=== PATIENT | male | born 1940 | race Caucasian/White ===

== ENCOUNTER → 2018-12-18 07:10 | Outpatient (CLI) | payer MEDICARE, SELFPAY ==
--- NOTE | 2018-12-18 07:13 | CT_ITS ---
STUDY: CT MAXILLOFACIAL SINUSES REASON FOR EXAM: Male, 78 years old. Sinusitis. Nasal congestion. RADIATION DOSAGE (If Supplied By Facility): CTDIvol = ( 33.06 ) mGy, DLP = ( 804.92 ) mGycm TECHNIQUE: The patient was scanned in a multi detector CT scanner. High resolution axial imaging was performed without the administration of intravenous contrast material. Sagittal and coronal images were reconstructed. Individualized dose optimization techniques were used for this CT. COMPARISON: None. FINDINGS: FRONTAL SINUSES: Opacification of the frontal sinuses bilaterally. ETHMOIDAL SINUSES: Opacification of the ethmoid sinuses with thinning of the bony septa. MAXILLARY SINUSES: Opacification of the maxillary sinuses with obstruction of the ostiomeatal complexes bilaterally. SPHENOIDAL SINUSES: Opacification of the sphenoid sinus. Normal bilateral middle turbinates. There is hypertrophy of the left inferior nasal turbinate. Normal midline nasal septum. Soft tissue proliferation within the nasal fossa worse on the left side. Polyposis should be ruled out. Thinning of the medial manzanares of both maxillary sinuses. The visualized bilateral orbital contents are normal. CT/Sinus/Facial Bone IMPRESSION: Gipson sinusitis. Soft tissue density in the nasal fossa suggestive of polyposis. Electronically Signed: Sunny Benoit, at 10:30 EDT , Service support ,
== END ==
PROVIDERS: Family Provider Family Medicine; PCP Family Medicine; Referring Provider Otolaryngology Otolaryngology/Facial Plastic Surgery; Visit Provider Otolaryngology Otolaryngology/Facial Plastic Surgery
DX: J32.9 Chronic sinusitis, unspecified (principal)
CPT/HCPCS: 70486

== ENCOUNTER 2019-03-02 08:53 | Day surgery (SDC) | payer MEDICARE, SELFPAY ==
--- NOTE | 2019-02-24 14:32 | EKG12_ITS ---
Test Reason : PRE OP Blood Pressure : / mmHG Vent. Rate : 077 BPM Atrial Rate : 077 BPM P-R Int : 164 ms QRS Dur : 078 ms QT Int : 362 ms P-R-T Axes : 064 -20 048 degrees QTc Int : 409 ms Normal sinus rhythm Possible Inferior infarct (cited on or before 20-OCT-1999) Abnormal ECG Confirmed by MAC SHARIF, GARETH ([id number]), video news editor BRYSON ALBARADO ([id number]) on 02/25/2019 10:44:02 AM Referred By: Keron James Confirmed By:GARETH WATTS MD
[2019-02-24 15:54] LABS: Hematocrit 47.3 % (40-54); Mean Corp Hgb Conc 33.8 g/dL (32-36); Mean Corpuscular Hgb 31.5 pg (27.0-32.0); Mean Corpuscular Volume 93.1 fL (80-94); Mean Platelet Vol. 10.2 fl (6.2-12.0); Platelet Count 197 K/mm3 (150-450); RBC Distribution Width CV 13.2 % (11.6-14.6); RBC Distribution Width SD 45.8 fl (35.1-43.9); Red Blood Count 5.08 M/mm3 (4.6-6.2); White Blood Count 6.3 K/mm3 (4.4-11.0)
[2019-02-24 16:09] LABS: Anion Gap 6 (5-15); BUN 18 mg/dL (7-18); BUN/Creat Ratio 22.8 RATIO (10-20); Calcium,Total 9.4 mg/dL (8.5-10.1); Chloride 102 mmol/L (98-107); Creatinine, Serum 0.79 mg/dL (0.70-1.30); EST Glomerular Filtration Rate 101 mL/min (>60); Est Glom Filt Rate - Afr Amer 122 mL/min (>60); Glucose 123 mg/dL (74-106); Potassium 3.7 mmol/L (3.5-5.1); Sodium Level 139 mmol/L (136-145)
[2019-03-02 09:12] VITALS: BP 168/97; PULSE 79; RESP 16; TEMP 36.6; O2SAT 97; BMI 29.1
[2019-03-02] MEDS: Lactated Ringers 1,000 ML 100 ML IV (09:19)
[2019-03-02] MEDS: Oxymetazoline 0.05% 1 SPRAY SPRAY.BTL 3 SPRAY NASAL (09:20)
--- NOTE | 2019-03-02 10:02 | DCINST_ITS ---
You will use the following diet at home:: Regular Discharge Activity: Return to Normal Activity Additional Activity Instructions:: No noseblowing. Start irrigation tomorrow morning (4x/day). Start antibiotics tonight. Allergies/Adverse Reactions: Allergies Sulfa (Sulfonamide Antibiotics) Allergy (Verified 02/24/19 10:34) Unknown Medications to take at Discharge Hydrochlorothiazide [Hctz] 25 mg PO DAILY 02/24/19 Lovastatin 40 mg PO QHS 02/24/19 Multivit-Min/FA/Lycopen/Lutein [Centrum Silver Men Tablet] 1 ea PO DAILY 02/24/19 Orders to be completed after discharge: 12 Lead EKG [CVS] Time Frame: 02/24/19, Facility: [facility], Location: Cardiovascular Services Basic Metabolic Profile (BMP) Time Frame: 02/24/19, Facility: [facility], Location: Laboratory CBC-Complete Blood Cnt No Diff Time Frame: 02/24/19, Facility: [facility], Location: Laboratory Primary Care Physician: Richar Coleman MD [Primary Care Provider] - Test Results: Test results from this visit will be discussed in further detail at your follow- up appointment, if applicable.
--- NOTE | 2019-03-02 11:00 | ETH_PTH ---
PATIENT: JOCELYNE SPENCER LOC: [facility] U#:[id number] AGE/SX: 79/M ROOM: RE03/02/[address]: Dr. Keron James MD : 1940 BED: DIS: 03/02/2019 SPEC #: [id number] RECD: 03/02/19 13:22 STATUS: EVERARDO JENN #: [id number] BECKY: 03/02/19 11:[address]: Keron James DEPT: SURGICAL PATHOLOGY RECD BY: Ross Thapa ENTERED: 03/02/19 13:52 SP TYPE: ETH TISS OTHR DR: Dr. Richar Coleman MD Tissues: A - Ethmoid sinus, NOS B - Ethmoid sinus, NOS Procedures: Decalcification bone/plaque Surgery Specimen Level III HEADER OPERATION: Endoscopic intranasal ethmoid, maxillary, Antro tissue removal PRE-OP DIAGNOSIS: Nasal congestion, chronic pansinusitis, polyps of nasal cavity TISSUE SUBMITTED: A - Right ethmoid and maxillary sinus contents, B - Left ethmoid and maxillary sinus contents MICROSCOPIC DIAGNOSIS A. Right ethmoid and maxillary sinus contents, excision: Consistent with chronic sinusitis. Fragments of bone with no pathologic change. B. Left ethmoid and maxillary sinus contents, excision: Consistent with chronic sinusitis. Fragments of bone with no pathologic change. AM:reggie 03/05/19 MICROSCOPIC DESCRIPTION Slides are reviewed. GROSS DESCRIPTION A - Received in fixative is one container labeled with the patient's name and designated right ethmoid and maxillary sinus contents. The specimen consists of multiple fragments of pink hemorrhagic soft tissue mixed with mucoid tissue and fragments of bone that in aggregate measure 5 x 3 x 0.3 cm. The entire specimen is submitted in two cassettes after decalcification. B - Received in fixative is one container labeled with the patient's name and designated left ethmoid and maxillary sinus contents. The specimen consists of multiple fragments of pink hemorrhagic soft tissue mixed with mucoid tissue and fragments of bone that in aggregate measure 5 x 3 x 0.3 cm. The entire specimen is submitted in two cassettes after decalcification. / SJ:reggie 03/02/19 TC:3 CPT: 00096 x2, 44328 x2
[2019-03-02] MEDS: Oxymetazoline 0.05% 1 SPRAY SPRAY.BTL 15 SPRAY (11:25)
[2019-03-02 11:39] VITALS: BP 145/92; BP 168/97; PULSE 77; RESP 18; TEMP 36.2; O2SAT 97
[2019-03-02 11:45] VITALS: BP 141/93; BP 168/97; PULSE 77; RESP 18; O2SAT 95
--- NOTE | 2019-03-02 11:50 | OP.PCM_ITS ---
Report of Operation Date of Procedure: 03/02/19 Pre-Operative Diagnosis: chronic sinusitis Post-Operative Diagnosis: same Surgery/Procedure Performed:: Bilateral total ethmoidectomy, Bilateral sphenoidotomy, Bilateral maxillary antrostomy with tissue removal, Use of navig ation Type of Anesthesia:: General Anesthesiologist: Shadi Pena Specimen's removed: sinus contents Estimated Blood Loss (mL): <30 cc Description of Procedure: The patient was taken to the operating room on 03/02/2019. He was placed in the supine position on the operating table. He was given sufficient general endotracheal anesthesia. The head of bed was elevated 30 degrees. The navigation system was placed and verified per protocol and found to be accurate. 0 and 30 degrees rigid nasal endoscopes were used throughout the entire case. The middle turbinate uncinate process and polyps were injected with 1% lidocaine with epinephrine bilaterally. The right middle turbinate was medialized with a Suring elevator. Polyp was removed from the middle meatus using a sinus shaver. A ball-tipped sinus seeker was placed into the patient's maxillary sinus. The uncinate process was taken down using a microdebrider. Tissue was removed from the maxillary sinus using a microdebrider with a 30 degree rigid nasal endoscope for visualization. Next, the ethmoid bulla was opened with a small curette. Anterior and posterior ethmoidectomy were then carried out using curette, sinus shaver and 45 degree Blakesley Jaylene forceps. Ethmoid cells were verified for relation to the skull base and orbit prior to being entered with the navigation system. The front face of the sphenoid was opened with a suction. Marcelino-Cut forceps were then used to widen the opening. I then placed Afrin pledgets into the sinonasal cavity. Next attention was turned to the left side. The middle turbinate was medialized with a Suring elevator. A large polyp was removed from the middle meatus using a sinus shaver. The uncinate process was taken down using a sinus shaver. In doing so, the maxillary antrostomy was created. Tissue was removed from the maxillary sinus using a microdebrider with a 30 degree rigid nasal endoscope for visualization. The ethmoid bulla was opened with a small curette. Anterior posterior ethmoidectomy were then carried out using a sinus shaver curette and Blakesley Jaylene forceps. Ethmoid cells were verified for relation to the skull base and orbit prior to being entered with the navigation system. There was a polyp occluding the natural sphenoid ostia. This was removed with a sinus shaver. The sphenoid was then opened on the left side using a sinus shaver and confirmed with navigation. Hemostasis was then achieved using Afrin pledgets. The pledgets were then removed bilaterally and Arron powder was applied bilaterally for absolute hemostasis. The procedure was then terminated. The patient was then awoken and brought to the recovery room in stable condition blood loss less than 30 cc replacement none. Sponge, needle, instrument count were correct at the end of the procedure.
[2019-03-02 11:57] VITALS: BP 140/90; BP 168/97; PULSE 73; RESP 18; TEMP 36.6; O2SAT 94
[2019-03-02 12:26] VITALS: BP 137/75; BP 168/97; PULSE 66; RESP 16; TEMP 36.3; O2SAT 96
== END 2019-03-02 12:32 | disposition home or self-care (01) ==
LOC: SDC 09:01 → AC 09:02
PROVIDERS: Family Provider Family Medicine; PCP Family Medicine; Referring Provider Otolaryngology; Visit Provider Otolaryngology
PROC: (CPT 31257; principal; 2019-03-02 10:30)
DX: J32.9 Chronic sinusitis, unspecified (principal); I10 Essential (primary) hypertension; E78.00 Pure hypercholesterolemia, unspecified; Z79.899 Other long term (current) drug therapy; Z87.891 Personal history of nicotine dependence
CPT/HCPCS: 00160; 31257; 31267; 36415; 80048; 85027; 88304; 88305; 88311; 93005; J7120; J2405

== ENCOUNTER → 2021-12-18 | Outpatient (CLI) | payer MEDICARE, SELFPAY ==
--- NOTE | 2021-12-18 14:49 | CT_ITS ---
EXAM: CT RIGHT LOWER EXTREMITY WITHOUT INTRAVENOUS CONTRAST CLINICAL INDICATION: PRE-OP TECHNIQUE: Helically acquired images were obtained of the right lower extremity without intravenous contrast. 2-D reformats were performed by the technologist. CTDIvol = ( 18.76 ) mGy, DLP = ( 1343.39 ) mGycm This CT exam was performed using one or more of the following dose reduction techniques: automated exposure control, adjustment of the mA and/or kV according to patient size, and/or use of iterative reconstruction technique. This report was created using [employer] report [employer] technology. COMPARISON: None. FINDINGS: Multiple large intra-articular ascitic bodies within the knee joint space most prominent at the suprapatellar space. Moderate to large joint effusion. Severe tricompartmental osteoarthrosis. Unusually large cystic lesions involving the proximal tibia could be degenerative or subchondral. MRI may provide additional useful for age. Atherosclerotic calcifications of the distal femoral and popliteal artery. 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 Additional ganglion or synovial cyst identified posteriorly between proximal tibia and fibula. Small fat-containing right inguinal hernia. Prominent prostate is nonspecific; correlate with PSA levels. Decompressed bladder. Anasarca. CT/Extremity Lower without Contra IMPRESSION: Moderate to severe tricompartmental osteoarthrosis, large proximal tibia cysts, and large knee joint effusion with multiple intra-articular ossific bodies. Electronically Signed: Wally Baker MD at 3:25 EDT ,
== END | disposition home or self-care (01) ==
LOC: CT 14:48
PROVIDERS: PCP Family Medicine; Referring Provider Specialist; Visit Provider Specialist
DX: M21.061 Valgus deformity, not elsewhere classified, right knee (principal)
CPT/HCPCS: 73700

== ENCOUNTER 2022-01-10 13:55 | Observation (INO) | payer MEDICARE, SELFPAY ==
--- NOTE | 2021-12-19 19:53 | HP.PCM_ITS ---
History and Physical History and Physical [facility] Patient Name: Patric Whitlock : 1940 From:? VELVET HOWELL PA-C? DATE OF SURGERY:? 01/10/2022 SCHEDULED PROCEDURE:? right total knee arthroplasty HISTORY OF PRESENT ILLNESS: Preoperative history and physical exam was performed on December 18, 2021.? This is a 81-year-old male who has been having ongoing pain for several years with regards to his right knee.? Pain is been intermittent.? Pain is increased with going up and down stairs, sitting, and walking.? He has difficulty with any activities of daily living that require physical heavier work.? He does have start up pain.? Pain is located over the lateral joint line.? Pain does occasionally wake him at nighttime.? He feels unsafe walking on uneven ground.? He has had previous corticosteroid injection in August 2021 with minimal relief.? He did have a MRI which was ordered by Dr. Abdirizak Singh for preoperative planning which did show a tibial cyst.? Patient has also tried home exercises with minimal relief.? He has tried [id number] medications including Tylenol and anti-inflammatory.? He has tried bracing with minimal relief.? He has had previous knee arthroscopies and bilateral knees by Dr. Hernandez approximately 20 years ago.? Patient has medical history pertinent for hypertension and enlarged prostate.? He denies any previous history of DVT or pulmonary embolism.? We are obtaining surgical clearance from the patient's primary care physician Dr. Becerril.? After failing conservative measures and discussing treatment options with Dr. Steve Pete, the patient does wish to proceed with a right total knee arthroplasty.? He currently denies any chest pain, shortness of breath, fevers chills or recent infections. REVIEW OF SYSTEMS: Review Of Systems: Constitutional: Denies change in appetite, fever,or weight change. Cardiovasular: Denies chest pain, heart murmur and irregular heartbeat. Respiratory: Denies cough, pneumonia, shortness of breath, tuberculosis and wheezing. Gastrointestinal: Denies constipation, diarrhea, heartburn, nausea, rectal itching, bloody stools and vomiting. Genitourinary: Denies incontinence. Musculoskeletal: Denies leg swelling, pain, trouble walking and weakness. Skin: Denies Raynaud's, history of shingles and tattoo. Neurological: Reports ambulatory dysfunction but denies dizziness, numbness/tingling and tremor. Psychiatric: Denies anxiety, insomnia and stress. Hematologic/Lymphatic: Denies anemia, bleeding/bruising tendency and past transfusion. Reviewed and updated. PAST MEDICAL HISTORY: Advance Care Plan: Resuscitationdg Effective Date: 06/14/2021 Past Medical History: Medical Problems: Arthritis, High Blood Pressure, High Cholesterol, enlarged prostate Accidents: Fracture - COLLAR BONE IN 8 RIBS IN Surgical Hx: Arthroscopy - BILAT KNEE- [facility]? Dr. Hernandez? Lymph Node Removal In Neck Area - 4 times? [id number]? [facility] Cataracts - BILAT 2019 - 2020? Anesthesia Complications: None Assistive Devices: Glasses Reviewed and updated. SOCIAL HISTORY: Social History: Marital: .Occupation: Retired.Work Status: Retired.Hand Dominance: Right- Handed. Personal Habits:? Cigarette Use: Former.Smokeless Tobacco: Never Used Smokeless Tobacco.E-Cigarette Use: Never used.Alcohol: Occasionally.Drug Use: Denies Use.Enjoy Exercising: Exercises 1-3 X/Week. Reviewed, no changes. VITALS: Ht: 67.2 Wt: 183lb Wt k.009 BMI: 28.5 BP: 158/98 Pulse: 79 Resp: 16 T: 97.8 T: 36.6C Pain Level: 2 O2SatR: 98 ALLERGIES: Sulfa? MEDICATIONS: Lovastatin 20 mg daily, Fluticasone Propionate 50 mcg/Act prn, Lisinopril 10 mg 1 by mouth every day, Ibuprofen 200 200 mg 2 by mouth as needed, Multivitamin? PRE-OP EXAM:? General appearance:NORMAL? ? ? Other: Eyes: Conjunctivae and lids: NORMAL? Pupils: ERR Ears, Nose, Mouth, and Throat: NORMAL? Other: Inspection of lips, teeth and gums: NORMAL? ?Other: Neck: Examination of neck: no masses noted. Respiratory: Assessment of respiratory effort: NORMAL? ?Other: ?Auscultation of lungs: clear to auscultation no wheezes, rhonchi or rales. Cardiovascular:? Auscultation of heart: regular rate and rhythm, no murmurs, gallops or rubs. PHYSICAL EXAMINATION: Patient does walk with an antalgic gait.? He has tenderness to palpation of the medial joint line.? He has valgus alignment.? Patient has moderate effusion.? Range of motion: Lacks 2 full extension to 105 flexion.? Stable to varus/valgus stress test.? Firm endpoint on anterior/posterior drawer exam. IMAGING STUDIES: Previous MRI of the right knee does reveal subchondral cyst of the medial and lateral compartments measuring 5.3 cm in size.? There is class IV chondral malacia in both the medial compartment and lateral compartment.? Chronically torn ACL. 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 Right knee osteoarthritis 2.? Hypertension 3.? Hypercholesterolemia 4.? Benign prostatic hyperplasia PLAN: Dr. Steve Pete did discuss and review with the patient all treatment options including surgical versus nonsurgical options.? Patient does wish to proceed with the above-stated procedure.? Potential risks, benefits, and complications of the procedure were discussed in detail including but not limited to , infection, nerve and blood vessel damage, persistent pain, numbness, tingling, paresthesias, blood clot, pulmonary embolism, and requirement for possible further surgery.? The patient expressed full understanding and has no further questions for the doctor.? Patient does agree to proceed with the above-stated procedure and has signed the surgery consent form. We discussed the current risks associated with COVID 19.? This does include the risk of exposure while in the hospital.? Patient was reassured local hospitals have low infection rates and are taking all necessary precautions to avoid exposure to patients.? In addition, we discussed strategies that can be used to help limit exposure including those that limit the patient's time in the hospital.? Also using strategies to limit the patient's need for continued inpatient services after being discharged from the hospital.? Patient was notified that we will need to comply with any screening or testing the hospital wishes to perform or that surgery may be delayed for any positive results. This dictation was created using voice recognition software. Phonetic and/or grammatical errors may exist. ___? I have re-examined the patient.? There are no clinical changes since date of exam. ___? See progress notes for changes. ___? Dictated on admission Date: ? ? ?Time: Signature:
[2022-01-10] VITALS (15 sets, daily range): BP systolic 107–173; BP diastolic 58–98; PULSE 68–106; RESP 16; TEMP 36.3–36.8; O2SAT 93–100; BMI 28.3
--- NOTE | 2022-01-10 | IMM_PTH ---
PATIENT: JOCELYNE SPENCER LOC: [facility] U#:[id number] AGE/SX: 81/M ROOM: IA324 RE01/10/[address]: Dr. Steve Pete MD : 1940 BED: 1 DIS: 01/11/2022 SPEC #: [id number] RECD: 01/17/22 11:56 STATUS: SOUMisty REQ #: [id number] BECKY: 01/10/22 00:[address]: Steve Pete DEPT: IMMUNOHISTOCHEMISTRY RECD BY: Maria L Barber ENTERED: 01/17/22 11:58 SP TYPE: IMMUNO OTHR DR: MD Dr. Jaylene Medrano Dr., MD Dr. John Vaccariello, MD Dr. Paige Pierce, MD Tissues: Right knee Procedures: CD138 (add) CD20 (add) CD3 (add) CD45 (add) CD5 (add) CD79A (add) CK8 (add) KAPPA (add) KI-67 (add) LAMBDA (add) Pankeratin (initial) PHYSICIAN & [address] [address] SPECIMEN INFORMATION: Tissue Source: Right knee debrided bone and tissue Clinical Info: Severe lateral joint space narrowing, valgus deformity, osteoarthritis Specimen Number: [id number] CPT code: 38373, 93602 x10 METHODOLOGY: Deparaffinized sections of prefer/formalin-fixed tissue or PAP/DQ stained slides are incubated with monoclonal/polyclonal antibodies/oligonucleotide probes. Localization is made via biotin free immunoperoxidase method. Appropriate controls are performed and reacted as expected. Results on target cell population are indicated in the following table: RESULTS: ANTIBODY / CLONE RESULT AE1-3 (AE1/AE3/PCK26) negative CK8 (58dalkW79) negative CD3 (PS1) positive CD5 (SP10) positive CD20 (L26) positive CD45 (RP2/18) positive CD79a (11E3) positive CD138 (B-A38) positive [place] (polyclonal) positive Lambda (polyclonal) positive Ki-67 (30-9) positive, low These tests were developed and their performance characteristics determined by [facility]. They may not have been cleared or approved by the U.S. Food and Drug Administration. The FDA has determined that such clearance or approval is not necessary. The above immunohistochemical/dualISH markers are ordered and reviewed by the Pathologist. INTERPRETATION: Bone and tissue, right knee, total knee replacement/resection: Lymphoid aggregates, polytypic in nature. Plasma cells, polytypic in nature. SJ:reggie 01/18/2022
--- NOTE | 2022-01-10 07:16 | PCM.OPRPT ---
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 Large central peritubular cyst. Severe stage IV osteoarthritis tricompartmentally. Cone was used to augment the cyst defect. Surgeon: Steve Pete care analyst: Jj Dao Type of Anesthesia: Spinal Anesthesiologist: Shadi Pena Special Medications: 2 g Ancef, 1 g TXA at incision, 1 g TXA closure, 10 mg Decadron, joint cocktail (5 mg Duramorph, 30 mL of 0.5% Ropivicaine, 1000 units of epinephrine, 30 mg of Toradol) Specimen's removed: Bony cuts Estimated Blood Loss (mL): 150 Fluids Replaced: 1500 mL crystalloid Description of Procedure: Implants used: 1. [place] size 5 triathlon cruciate retaining distal femoral press-fit component 2. [place] size 6 universal tibial baseplate with 15 x 50 mm cemented stem and size C cone 3. [place] X3 10 mm CS polyethylene 4. [place] X3 38 mm asymmetric patella Brief history operative indications: 81-year-old male with history of right knee osteoarthritis with radiographic findings with loss of joint space, osteophyte formation, large central subchondral cyst and subchondral sclerosis. Failed conservative measures as mentioned in the H&P. Discussion of total knee arthroplasty as well as risk and benefits were discussed the patient including but not limited to blood loss, DVTs, PEs, neurovascular damage, general risk of anesthesia including loss of life, and stiffness or instability were discussed with patient. Patient demonstrated understanding and was able to sign informed consent. Procedure: On the date of procedure patient's right lower extremity was marked in the preoperative area. The patient was then taken back to the operating room where the patient was placed on the table in the supine position. All bony prominences were identified a well-padded. Anesthesia assumed control of the C-spine and airway and remained controlled throughout the remainder of the procedure. A tourniquet was placed on the right upper thigh and the leg was prepped in a sterile fashion. The surgeon then scrubbed at this time .Upon reentering the room right lower extremity was draped in a standard orthopedic fashion. A timeout was then called and everyone agreed upon the side, the site, the procedure to be performed, patient's identity and antibiotics given. Esmarch bandage was used to exsanguinate the extremity and the tourniquet was placed up to 250 mmHg with the knee in flexion. A midline skin incision was made and sharp dissection was taken down through skin subcutaneous tissue and fat. The standard medial parapatellar incision was made and the patella was subluxed laterally. An Appropriate deep MCL release was done and the fat pad was resected. Our attention was then directed to the patella. The patella was everted and a flat resection was made. The knee was then flexed up in 2 femoral pins were placed inside the incision and 2 tibial pins were placed outside the incision in the medial tibia bicortically. Once this was completed the 2 checkpoints in the femur and tibia were placed. Knee was then flexed up and the bony landmarks were registered. Once this was completed knee was taken through range of motion and manually stressed allowing us to a plan for an appropriate tibial cut. The robotic arm was brought into the field sterilely and checkpoint and saw were registered. Based on the patient's deformity the tibial cut was made neutral to the tibial axis. At this time the tensioner was then placed in the joint and ligament tension was checked at 90 degrees and full extension. Based on the patient's ligamentous tension appropriate adjustments were made to the operative plan and ligament releases were done. Once we were happy with our operative plan with balanced flexion and extension gaps our attention was directed to the femur. The robot was brought into the field sterilely and registered. Posterior condylar cuts, anterior chamfer cuts and anterior cuts were appropriately made for a size 5 femur. When these were completed the saws were switched out in the distal femoral and posterior chamfer cuts were made. Protecting the soft tissue throughout this time. A size 6 tibial base plate was selected. the knee was flexed to 90 degrees and the soft tissues and posterior osteophytes were removed from the joint. 40 cc of the periarticular injection was injected into the posterior medial corner of the joint. The appropriate trials were then placed on the femur and tibia. A trial polyethylene was trialed to ensure proper balancing and stability of the knee. The appropriate tibial internal rotation was then marked with a bovie. Our attention was then directed to the patella. The lug holes were drilled and the patella trial was placed. Patellar tracking was checked and deemed appropriate. Once we were happy lug holes were drilled for the femur and trial components were removed. the tibia was subluxed and pinned into place and the keel was punched and a central boss reamer was used to drill for the stem. After this was done we then reamed for a size C cone.. Final components were verified and opened, and cement was mixed in a vacuum. [employer] Undergarments Simplex cement was used. The wound was copiously irrigated with normal saline. When the cement was ready the components were cemented into place starting with the tibia, press fitting the femur and finally cementing the patella. The trial poly component was placed and the knee was placed in full extension. All excess cement was removed in the process. Once the cement had cured the tracking, alignment and balance were verified and a size 10 mm CS polyethylene component was placed. Once the final components were placed a 3-minute dilute Betadine lavage was performed followed by an Irrisept lavage was performed and the wound was copiously irrigated with normal saline solution and the periarticular injection was given. The wound was closed in a layer lezama fashion using #1 vicryl interrupted sutures for the arthrotomy, 2-0 interrupted Vicryl suture for the subcuticular layer and edda for final skin closure. A sterile compressive dressing was then placed. The patient was then awakened from anesthesia, transferred to the [facility] and transferred to the PACU for recovery. Post op plan DVT ppx: ASA 81mg BID, thigh high compression stockings Follow up: in office in 2 weeks for wound check PT: to start POD #0 at hospital, outpatient PT should be arranged. My physician assistant floor covering printer was a vital part of this case. He was important in appropriate retraction during the case, and protection of soft tissues during bony cuts. His intimate knowledge of the case and my steps aided in safe and expedient completion of the procedure as well as appropriate position of the leg during the case. He was also vital in assisting with closure under my direct supervision. Due to the complexity of this case robotic arm was used to assist in the surgery to improve accuracy and clinical outcomes. Complications No intraoperative complications Admit VTE Documentation VTE Present on Admission: No VTE Mechan Device Prophylaxis: SCD's and Thigh High ELLY Hose VTE Pharm Prophylaxis ordered?: Yes
[2022-01-10] MEDS: Lactated Ringers 1,000 ML 999 ML IV (09:10)
[2022-01-10] MEDS: Magnesium 2 GM for ERAS IV (09:11)
[2022-01-10] MEDS: Gabapentin 600 MG Tablet PO (09:11)
[2022-01-10] MEDS: Acetaminophen 500 MG Tablet 1000 MG PO ×3 (09:11→22:20)
[2022-01-10 10:50] LABS: Bedside Glucose 86 mg/dL (74-106)
--- NOTE | 2022-01-10 11:15 | KNEE_PTH ---
PATIENT: JOCELYNE SPENCER LOC: MS3 U#:[id number] AGE/SX: 81/M ROOM: NC324 RE01/10/[address]: Dr. Steve Pete MD : 1940 BED: 1 DIS: 01/11/2022 SPEC #: [id number] RECD: 01/10/22 13:54 STATUS: EVERARDO RESunitha #: [id number] BECKY: 01/10/22 11:[address]: Steve Pete DEPT: SURGICAL PATHOLOGY RECD BY: Bossman Hooper ENTERED: 01/11/22 07:45 SP TYPE: TOTAL KNEE OTHR DR: MD Dr. Jaylene Medrano Dr., MD Dr. John Vaccariello, MD Dr. Paige Pierce, MD Tissues: Knee, NOS Procedures: Decalcification bone/plaque Surgery Specimen Level IV HEADER OPERATION: ERAS, total knee replacement robotic arm assist PRE-OP DIAGNOSIS: Severe lateral joint space narrowing with valgus deformity, osteoarthritis TISSUE SUBMITTED: Right knee debrided bone and tissue MICROSCOPIC DIAGNOSIS Bone and tissue, right knee, total knee replacement/resection: Pieces of bone with degenerative osteoarthritic changes. Fibroadipose tissue, fibroconnective tissue and reactive synovial tissue. Extensive changes consistent with pseudogout. See comment. SJ:reggie 01/17/2022 COMMENT Lymphoid aggregates and plasma cells are noted. Immunohistochemistry ([id number]) shows lymphoid aggregates and plasma cells polytypic in nature. Case has been reviewed in consultation with Dr. Vance who concurs with the above diagnosis. IDC:AM MICROSCOPIC DESCRIPTION Slides are reviewed. GROSS DESCRIPTION Received is one container designated right knee bone and tissue. The specimen consists of multiple fragments of rodriges-yellow bone measuring in aggregate 16 x 12 x 1.5 cm. Also in the specimen container are multiple fragments of yellow-white soft tissue measuring in aggregate 3 x 3 x 1 cm. A number of bony fragments contain articular surfaces consistent with tibial plateau and femoral condyle and displaying prominent osteophyte formation, eburnation, and bone erosion. Pulp Refiner Operator sections are submitted in two cassettes as follows: 1 - soft tissue, 2 - bone after decalcification. / AM:reggie 01/11/2022 TC:5 CPT: 67322, 22150
[2022-01-10] MEDS: Cefazolin 2 GM in 0.9% Normal Saline 100 ML IV (11:30)
[2022-01-10] MEDS: TXA 1000mg in NS100 100ml (IVPB at Incision) 660 MG IV (11:50)
[2022-01-10] MEDS: dexAMETHasone 10 MG/ML Vial IV (11:50)
[2022-01-10] MEDS: TXA 1000mg in NS100 100ml (IVPB at Closure) 660 MG IV (13:09)
[2022-01-10] MEDS: Lactated Ringers 1,000 ML 125 ML IV (13:30)
--- NOTE | 2022-01-10 14:00 | RAD_ITS ---
STUDY: X-RAY - RIGHT KNEE REASON FOR EXAM: Male, 81 years old. Post op -- AP and Lateral xray of operative knee in PACU TECHNIQUE: 2 view(s) of the knee. COMPARISON: None. FINDINGS: Normal visualized distal femur. Normal visualized proximal tibia and fibula. Normal proximal tibiofibular articulation. The patient is status post total knee replacement. There is good alignment. Postoperative soft tissue changes. RAD/Knee 1 or 2 Views IMPRESSION: Status post total knee replacement. There is good alignment. Postoperative soft tissue changes. Electronically Signed: Sunny Benoit MD at 14:39 EDT ,
[2022-01-10] MEDS: Ondansetron 4 MG/2 ML Vial IV (16:23)
[2022-01-10] MEDS: Lisinopril 10 MG Tablet PO (17:01)
--- NOTE | 2022-01-10 17:21 | PCM.PN.HOSP ---
Subjective Subjective Today, the patient underwent a robotic assisted minimally invasive right total knee replacement. His only complaint right now is abdominal cramps and bloating. Patient had a nerve block to his right leg and does not have any pain in it at present. Objective Data Objective Data Vital Signs: Vital Signs Temp Pulse Resp BP Pulse Ox O2 Del Method O2 Flow Rate 36.7 C 104 H 16 173/98 H 98 Room Air 4 01/10/22 16:15 01/10/22 16:15 01/10/22 16:15 01/10/22 16:15 01/10/22 16:55 01/10/22 16:55 01/10/22 15:15 Oxygen Flow Rate (L/min) 4 Oxygen Delivery Method Room Air Weight: 82 kg Body Mass Index (BMI) 28.3 Intake & Output: Intake and Output for Last 24 Hours 01/08/22 01/09/22 01/10/22 23:59 23:59 23:59 Intake Total 3434 / 3434 Balance 3434 / 3434 Lab / Micro Data Labs: Laboratory Results - last 24 hr 01/10/22 09:04: POC Glucose 86 Radiography Diagnostic Testing: Radiology Impression Knee X-Ray 01/10/22 14:00 IMPRESSION: Status post total knee replacement. There is good alignment. Postoperative soft tissue changes. Electronically Signed: Sunny Benoit MD at 14:39 EDT , Physical Exam Const alert and no apparent distress HEENT head/scalp atraumatic and moist oral mucous membranes Resp normal respiratory effort, no retractions, no use of accessory muscles and clear to auscultation bilaterally Cardio regular rate, regular rhythm, S1 normal heart sound and S2 normal heart sound GI normal to inspection, nondistended, normoactive bowel sounds, non-tender and non-distended GI Narrative: Ventral hernia that is reducible. Extremity Extremity Narrative: Right knee wrapped, did not remove Neuro moves all extremities and no focal motor deficits Psych affect normal Assessment & Plan Assessment/Plan (1) Hypertension: QUALIFIERS: Hypertension type: primary hypertension Qualified Code(s): I10 - Essential (primary) hypertension PLAN: Continue with his lisinopril. He did receive that this evening at 17:01 Currently asymptomatic. Would not do anything additional at this point in time unless it sustains elevated. Though it sounds like at home his blood pressure is not well controlled as he states that his blood pressure, when he checks it at home, is in the 150s systolic. May need some further adjustments but would hold off at this time. (2) Status post right knee replacement: PLAN: Management per orthopedics. PLAN: Plan VTE prophylaxis: Per orthopedics. Aspirin 81 mg twice daily has been ordered. Thank you for the consult. The hospitalist service will follow along for the time being. Charges/Coding Visit Charges Inpatient E&M: 21494 Subs Hosp L2
[2022-01-10] MEDS: Aspirin 81 MG TAB.CHEW PO (18:45)
[2022-01-10] MEDS: Senna/Docusate Sodium 1 Tablet 2 TABLET PO (22:20)
[2022-01-10] MEDS: Atorvastatin Calcium 10 MG Tablet 5 MG PO (22:21)
[2022-01-10] MEDS: Cefazolin 1 GM/50 ML BAG IV (22:23)
[2022-01-11] VITALS (10 sets, daily range): BP systolic 118–142; BP diastolic 66–85; PULSE 72–81; RESP 16–18; TEMP 36.5–36.6; O2SAT 92–100; BMI 28.3
[2022-01-11] MEDS: Cefazolin 1 GM/50 ML BAG IV (04:55)
[2022-01-11] MEDS: Acetaminophen 500 MG Tablet 1000 MG PO ×2 (05:25→14:27)
[2022-01-11 06:14] LABS: Hematocrit 39.5 % (40-54); Hemoglobin 13.1 g/dL (13.0-16.5); Mean Corp Hgb Conc 33.2 g/dL (32-36); Mean Corpuscular Hgb 31.7 pg (27.0-32.0); Mean Corpuscular Volume 95.6 fL (80-94); Mean Platelet Vol. 10.6 fl (6.2-12.0); Platelet Count 172 K/mm3 (150-450); RBC Distribution Width CV 12.8 % (11.6-14.6); RBC Distribution Width SD 45.3 fl (35.1-43.9); Red Blood Count 4.13 M/mm3 (4.6-6.2); White Blood Count 12.9 K/mm3 (4.4-11.0)
[2022-01-11 07:01] LABS: Anion Gap 5 (5-15); BUN 12 mg/dL (7-18); BUN/Creat Ratio 18.3 RATIO (10-20); Calcium,Total 8.8 mg/dL (8.5-10.1); Chloride 109 mmol/L (98-107); Creatinine, Serum 0.65 mg/dL (0.70-1.30); EST Glomerular Filtration Rate 125 mL/min (>60); Est Glom Filt Rate - Afr Amer 151 mL/min (>60); Glucose 119 mg/dL (74-106); Potassium 4.2 mmol/L (3.5-5.1); Sodium Level 140 mmol/L (136-145)
[2022-01-11] MEDS: Aspirin 81 MG TAB.CHEW PO (08:26)
[2022-01-11] MEDS: Multivitamins,Ther W-Minerals Tablet 1 TABLET PO (08:26)
[2022-01-11] MEDS: Famotidine 20 MG Tablet PO (08:26)
[2022-01-11] MEDS: Lisinopril 10 MG Tablet PO (08:26)
[2022-01-11] MEDS: oxyCODONE 5 MG Tablet PO (08:26)
[2022-01-11] MEDS: Ensure Surgery 237 ML LIQUID PO (08:28)
[2022-01-11] MEDS: 0.9% Saline Lock 10 ML Syringe IV (08:30)
--- NOTE | 2022-01-11 08:46 | PCM.PN.HOSP ---
Subjective Subjective DOS 01/11/22 CC: frequent urination Pt reports feeling well today with pain well controlled. Eating well, no chest pain or SOB. He reports abdominal cramping resolved. Denies nausea or vomiting. Does have some frequent urination which he reports is chronic 2/2 his prostate problems. No other complaints this AM. Objective Data Objective Data Vital Signs: Vital Signs Temp Pulse Resp BP Pulse Ox O2 Del Method O2 Flow Rate 98 F 81 18 142/85 H 96 Room Air 4 01/11/22 08:42 01/11/22 08:42 01/11/22 08:42 01/11/22 08:42 01/11/22 08:42 01/11/22 08:42 01/11/22 08:42 Oxygen Flow Rate (L/min) 4 Oxygen Delivery Method Room Air Weight: 82 kg Body Mass Index (BMI) 28.3 Intake & Output: Intake and Output for Last 24 Hours 01/09/22 01/10/22 01/11/22 23:59 23:59 23:59 Intake Total 4634 / 4634 100 / 100 Output Total 150 / 1075 1525 / 1525 Balance 4484 / 3559 -1425 / -1425 Lab / Micro Data Result Diagrams: 01/11/22 05:50 01/11/22 05:50 Labs: Laboratory Results - last 24 hr 01/10/22 09:04: POC Glucose 86 01/11/22 05:50: WBC 12.9 H, RBC 4.13 L, Hgb 13.1, Hct 39.5 L, MCV 95.6 H, MCH 31.7, MCHC 33.2, RDW Std Deviation 45.3 H, RDW Coeff of Paulette 12.8, Plt Count 172, MPV 10.6 01/11/22 05:50: Sodium 140, Potassium 4.2, Chloride 109 H, Carbon Dioxide 26.0, Anion Gap 5, BUN 12, Creatinine 0.65 L, Estim Creat Clear Calc 56.00, Est GFR (MDRD) Af Amer 151, Est GFR (MDRD) Non-Af 125, BUN/Creatinine Ratio 18.3, Glucose 119 H, Calcium 8.8 Radiography Diagnostic Testing: Radiology Impression Knee X-Ray 01/10/22 14:00 IMPRESSION: Status post total knee replacement. There is good alignment. Postoperative soft tissue changes. Electronically Signed: Sunny Benoit MD at 14:39 EDT , Physical Exam Const alert and no apparent distress Constitutional Narrative: Oriented HEENT normocephalic and head/scalp atraumatic Eyes Eyes Narrative: EOM grossly intact, anicteric Neck supple Resp normal respiratory effort and clear to auscultation bilaterally Cardio regular rate and regular rhythm GI soft to palpation, non-tender and non-distended Extremity Extremity Narrative: No edema appreciated Neuro moves all extremities Neuro Narrative: No overt focal deficits appreciated Psych Psych Narrative: Cooperative Assessment & Plan Assessment/Plan (1) Hypertension: QUALIFIERS: Hypertension type: primary hypertension Qualified Code(s): I10 - Essential (primary) hypertension (2) Status post right knee replacement: PLAN: Plan 1. Primary essential hypertension Continue lisinopril 10mg Did have two BPs 120/74 this AM, now 142/85 Asymptomatic Given acute status, feel lisinopril 10mg is reasonable especially with improvement after PM dose Will follow 2. s/p R knee replacement Management per orthopedics Charges/Coding Visit Charges Inpatient E&M: 54864 Subs Hosp L2
--- NOTE | 2022-01-11 09:53 | CASEMGMT ---
Social Work SW in to validate AD with pt. Pt confirmed has HCPOA and named [employer] [facility], in [place], as agent. Pt not sure if has LW, declined further information. Pt made aware HCPOA document not on file and that could drop of copy to medical records department. Pt voiced understanding. JENAE Colbert
--- NOTE | 2022-01-11 10:55 | CASEMGMT ---
RN CM HAND SHOE CUTTER CM to room to meet with patient for initial transition planning/care coordination assessment. RN DREAD introduced self and role at [facility]. Pt voices understanding and consents to assessment at this time. Pt sitting up in chair in room in no distress at this time. in room visiting. Pt is A/O at this time and answers all questions appropriately. Care providers, pharmacy, and demographics verified/updated at this time. PCP: Dr Becerril Specialists: Dr Pete-ortho, Dr James-ENT Preferred Pharmacy: [facility] Prescription Benefit: Yes Living Will/HPOA: Has both LW and HPOA, who is his , Berenice LNOK: , Berenice Living Arrangements: Lives w/ in one-story home w/basement. 5 steps to enter home. Pt states therapy has worked w/him on stairs. He was sleeping in the basement, but they have moved the bed up to 1st floor for now. Was independent @ baseline. able to assist as needed. Transportation: Pt states drives self and states no transportation concerns at this time. also drives. DME: States has the following DME: walker, rails/grab bars Pt states no need for further DME at this time. HHC/SNF: No hx of either. Pt has appt for OP therapy @ [facility] 01/15 @ 1 PM. Pt wishes to return home and states has no concerns with going home at time of discharge. CM to follow for any discharge planning/needs. Pt and voice no concerns/needs at this time. Advised them to ask for CM if any questions/concerns/needs arise. They voice understanding. PLAN: Home w/OP therapy Yenny GILLIS RN, CM
--- NOTE | 2022-01-11 10:59 | PN.ORTHO_ITS ---
Subjective Subjective The patient was sitting in bedside chair upon examination. Patient denies any chest pain, shortness of breath, dizziness, lightheadedness, nausea or vomiting, or calf pain. Pain is controlled on medications. No adverse overnight events. Overall patient is doing very well. He finished physical therapy and did well. Patient does have history of benign prostatic hyperplasia and states he has been urinating on his own. Objective Data Objective Data Vital Signs: Vital Signs Temp Pulse Resp BP Pulse Ox O2 Del Method O2 Flow Rate 98 F 81 18 142/85 H 96 Room Air 4 01/11/22 08:42 01/11/22 08:42 01/11/22 08:42 01/11/22 08:42 01/11/22 08:42 01/11/22 08:42 01/11/22 08:42 Oxygen Flow Rate (L/min) 4 Oxygen Delivery Method Room Air Weight: 82 kg Body Mass Index (BMI) 28.3 Intake & Output: Intake and Output for Last 24 Hours 01/09/22 01/10/22 01/11/22 23:59 23:59 23:59 Intake Total 4634 / 4634 100 / 100 Output Total 150 / 1075 1525 / 1525 Balance 4484 / 3559 -1425 / -1425 Lab / Micro Data Result Diagrams: 01/11/22 05:50 01/11/22 05:50 Labs: Laboratory Results - last 24 hr 01/11/22 05:50: WBC 12.9 H, RBC 4.13 L, Hgb 13.1, Hct 39.5 L, MCV 95.6 H, MCH 31.7, MCHC 33.2, RDW Std Deviation 45.3 H, RDW Coeff of Paulette 12.8, Plt Count 172, MPV 10.6 01/11/22 05:50: Sodium 140, Potassium 4.2, Chloride 109 H, Carbon Dioxide 26.0, Anion Gap 5, BUN 12, Creatinine 0.65 L, Estim Creat Clear Calc 56.00, Est GFR (MDRD) Af Amer 151, Est GFR (MDRD) Non-Af 125, BUN/Creatinine Ratio 18.3, Glucose 119 H, Calcium 8.8 Radiography Diagnostic Testing: Radiology Impression Knee X-Ray 01/10/22 14:00 IMPRESSION: Status post total knee replacement. There is good alignment. Postoperative soft tissue changes. Electronically Signed: Sunny Benoit MD at 14:39 EDT , Physical Exam Narrative Vital signs stable and afebrile. SCDs and ELLY hose are in place bilaterally. Patient also had his postoperative Ollie wrap which was removed today. Patient is able to plantarflex and dorsiflex actively. Sensation is intact to light touch to saphenous, sural, superficial and deep peroneal, and tibial distribution. There is quarter size drainage over the distal one third of the main Mepilex dressing. Proximal pin site dressing clean dry and intact and trace amount of drainage over the distal pin site. Negative Homans bilaterally, negative signs and symptoms of DVT. Const alert, oriented x3 and no apparent distress Assessment & Plan Assessment/Plan (1) Status post right knee replacement: PLAN: 1. S/P right total knee arthroplasty POD #1 2. Continue Pain Medications: Tylenol and oxycodone 3. DVT Prophylaxis: Take 81 mg aspirin twice daily for 4 weeks postoperatively for DVT prophylaxis. Patient denies previous history of DVT or pulmonary emboli sm 4. PT/OT: Weightbearing as tolerated with walker 5. H & H: 13.1/39.5, asymptomatic. Postoperative anemia secondary to acute blood loss from surgery without any intra operative complications. 6. Reactive leukocytosis: Currently 12.9, afebrile. Patient did receive Decadron intraoperatively 7. Continue postoperative medical management per medicine: Patient does have history of benign prostatic hyperplasia but is been able to urinate on his own. This has been managed by his primary care physician. I instructed the patient that if he has any difficulty with urination at home he is to contact his PCP. 8. Encouraged Incentive Spirometry 9. Postoperative drainage: Drainage currently there is no need to change dressing. If there is further drainage I did discuss with the nurse to contact me for further recommendations. 10. Disposition: Plan will be for probable discharge home today as long as there is no further drainage from the incision. His pain appears well controlled and patient is medically stable. Patient tolerated physical therapy very well. If there is no further drainage no other recommendations will be given. He will continue with the postoperative Mepilex dressing for 5 days. Patient would like his prescriptions E scribed to [facility] in [facility]. He does have outpatient physical therapy established. He will follow-up per postoperative instructions. He will contact her office upon discharge with any concerns or questions. I have reviewed the [place] Automated Rx Reporting System (OARRS) report for this patient for refill pattern and other prescriber involvement as part of the appropriate surveillance for the provision of acute and chronic controlled medications. The report was requested and reviewed on the date of this entry and was considered in the prescribing process. This dictation was created using voice recognition software. Phonetic and/or grammatical errors may exist.
--- NOTE | 2022-01-11 11:03 | DCINST_ITS ---
Discharge Instructions Diet Discharge Diet: No restrictions Activity Discharge Activity: May Not Drive (No driving for 6 weeks postoperatively and must be off all narcotics) May shower in (days): 1 (Please turn dressing away from water. Okay to get wet as long as dressing is intact to skin.) Ice area for (Minutes): 20 (Every 1-2 hours while awake[address] Please place barrier between the skin and ice pack.) Weight Bearing Status: Weight bearing as tolerated Keep extremity elevated above heart level: Operative Extremity Dressing / Incision Call your doctor if your incision/area has: Continuous Slow Oozing, Sudden Increased Bleeding, Increased Pain/ Swelling, Increased Redness and Foul Smelling Discharge Call your doctor if you observe: Fever of 101 or Higher, Coldness, Increased Pain, Numbness or Tingling, Change in Color, Shortness of breath, Chest pain, Calf discomfort and Uncontrolled pain Remove Dressing in: 4 days (Okay to remove dressing on January 15, 2022) Additional Dressing/Incision Instructions:: Follow [facility] Post-op Instructions. Once postoperative dressing has been removed only use gentle soap and water over the incision. Do not use any ointments, Neosporin, salves, alcohol pads over the incision for 6 weeks postoperatively. Do not submerge underwater for 6 weeks postoperatively. Continue with ELLY hose/elastic stockings for 2 weeks postoperatively. May remove at nighttime but needs to be placed back on the leg during the day. Do NOT use alcohol with narcotic pain medication. Do NOT make important decisions while taking narcotic medication. If you have problems with taking your medication (rash, itching, nausea, etc.) call the office at once. Follow Up Care Test Results: Test results from this visit will be discussed in further detail at your follow- up appointment, if applicable. Discharge Plan Admission Admit Date/Time: 01/10/22 13:55 Attending Provider: Steve Pete Primary Care Provider: Garrick Becerril Consulting Providers: No Mi ; Jaylene Guajardo ; Jaylene Sherwood ; Yumiko Will Discharge Orders/Prescriptions Prescriptions: New acetaminophen 500 mg Tablet 1,000 mg PO TID Qty: 100 0RF Rx Instructions: Do not take more than 3000 mg Tylenol in a 24-hour period. aspirin 81 mg capsule 81 mg PO BIDCM Qty: 0 0RF Rx Instructions: Take 81 mg aspirin twice daily for 4 weeks postoperatively for DVT prophylaxis. famotidine 20 mg Tablet 20 mg PO DAILY Qty: 30 0RF oxycodone 5 mg Tablet 5 - 10 mg PO Q4H PRN PRN (Reason: Pain Score 4-10) 5 Days Qty: 60 0RF sennosides-docusate sodium [Stool Softener-Stimulant Laxat] 8.6-50 mg Tablet 2 tab PO BID Qty: 20 0RF Rx Instructions: Take until first bowel movement, then as needed Continued lovastatin 40 MG tablet 20 mg PO QHS [id number]-BW-lycopen-lutein 1 EACH tablet 1 ea PO DAILY lisinopril 10 mg tablet 10 mg PO DAILY fluticasone propionate 50 mcg/actuation spray,suspension 1 spray INTRANASAL DAILY Referrals / Follow Up: Physical,Therapy [Other] - 01/15/22 1:00 pm Garrick Becerril MD [Primary Care Provider] - Jj Dao PA-C [Med Staff - [facility]] - 01/25/22 2:45 pm Disposition Disposition (needs filled in before D/C Order can be placed): Home, Self Care
== END 2022-01-11 14:53 | disposition home or self-care (01) ==
LOC: SDC 13:56 → MS3 13:56
PROVIDERS: Admitting Provider Specialist; PCP Family Medicine; Referring Provider Specialist; Visit Provider Specialist
PROC: 0SRC0JZ Replacement of Right Knee Joint with Synthetic Substitute, Open Approach (ICD-10-PCS; CPT 27447; principal; 2022-01-10 10:45)
DX: M17.11 Unilateral primary osteoarthritis, right knee (principal); Z87.891 Personal history of nicotine dependence; E78.00 Pure hypercholesterolemia, unspecified; R14.0 Abdominal distension (gaseous); N40.1 Benign prostatic hyperplasia with lower urinary tract symptoms; I10 Essential (primary) hypertension; R35.0 Frequency of micturition; Z79.899 Other long term (current) drug therapy; K21.9 Gastro-esophageal reflux disease without esophagitis
CPT/HCPCS: 27447; 01402; S2900; 64445; 36415; 73560; 80048; 82962; 85027; 88305; 88311; 88341; 88342; 96365; 96366; 96375; 97110; 97116; 97162; 97166; 97530; 97535; 99218; 99251; C1776; J7120; A4216; G0378; G0463; J2405

== ENCOUNTER → 2023-09-11 | Outpatient (CLI) | payer MEDICARE, SELFPAY ==
--- NOTE | 2023-09-11 14:01 | ECHOD_ITS ---
Reason For Study: NON RHEUMATIC AV Procedure This was a 2D Doppler, Color Flow transthoracic echocardiogram. Exam performed in department. Left Ventricle Normal LV size. Left ventricular systolic function is normal. Stage 1 diastolic dysfunction. The left ventricular ejection fraction is 65 %. No regional wall motion abnormalities noted. Right Ventricle Normal RV size. Normal systolic function. Atria Normal left atrium. Normal right atrium. Mitral Valve There is moderate mitral annular calcification. Tricuspid Valve Normal tricuspid valve. Mild (1+) tricuspid valve insufficiency. Pulmonary artery systolic pressure is 38 mmHg. Aortic Valve Trisinus/trileaflet aortic valve. Mild diffuse aortic valve thickening. Pulmonic Valve Normal pulmonic valve. Great Vessels Normal aortic root. The pulmonary artery is normal size. Normal inferior vena cava. Pericardium/Pleural No pericardial effusion. MMode/2D Measurements & Calculations LVIDd: 4.8 cm IVSd: 1.1 cm LVOT diam: 2.1 cm LVIDs: 3.2 cm LVPWd: 1.1 cm LVOT area: 3.4 cm2 RVDd: 2.5 cm FS: 32.9 % Ao root diam: 3.1 cm LAV(MOD-bp): 69.3 ml LVAd ap4: 25.4 cm2 ACS: 1.7 cm LAV(MOD-bp) Indexed: 35.0 ml/m2 LVLd ap4: 8.2 cm LAV(MOD-sp2): 69.9 ml EDV(MOD-sp4): 64.8 ml LAV(MOD-sp4): 66.9 ml EDV(sp4-el): 66.7 ml LVAs ap4: 12.3 cm2 LVLs ap4: 5.9 cm ESV(MOD-sp4): 22.5 ml ESV(sp4-el): 21.8 ml EF(MOD-sp4): 65.3 % EF(sp4-el): 67.4 % LVAd ap2: 22.9 cm2 SV(MOD-sp4): 42.3 ml SV(MOD-sp2): 35.0 ml LVLd ap2: 8.3 cm EDV(MOD-sp2): 53.0 ml EDV(sp2-el): 53.9 ml LVAs ap2: 12.0 cm2 LVLs ap2: 7.0 cm ESV(MOD-sp2): 18.0 ml ESV(sp2-el): 17.4 ml EF(MOD-sp2): 66.0 % SV(sp4-el): 44.9 ml LA dimension(2D): 4.2 cm LA A4 area: 20.8 cm2 RA A4 area: 15.8 cm2 TAPSE: 3.1 cm Time Measurements MV dec time: 0.32 sec Doppler Measurements & Calculations MV E max linden: 83.0 cm/sec Lat Peak E' Linden: 9.3 cm/sec Med Peak E' Linden: 8.8 cm/sec MV A max linden: 114.5 cm/sec E/E' lat: 8.9 E/E' med: 9.5 MV E/A: 0.72 MV V2 max: 118.2 cm/sec MV P1/2t max linden: 116.2 cm/sec Ao V2 max: 208.4 cm/sec MV max P.6 mmHg MV P1/2t: 108.9 msec Ao max P.4 mmHg MV V2 mean: 69.8 cm/sec Ao V2 mean: 145.5 cm/sec MV mean P.3 mmHg MV dec slope: 312.5 cm/sec2 Ao mean P.4 mmHg MV V2 VTI: 37.4 cm MVA(P1/2t): 2.0 cm2 Ao V2 VTI: 45.3 cm PA V2 max: 108.0 cm/sec TR max linden: 294.9 cm/sec PA V2 mean: 74.2 cm/sec TR max P.8 mmHg ECHO/Echo Complete Interpretation Summary Normal LV size. Left ventricular systolic function is normal. Stage 1 diastolic dysfunction. The left ventricular ejection fraction is 65 %. Pulmonary artery systolic pressure is 38 mmHg. Ordering Physician: Ashleigh Campbell Referring Physician: Patrick Alfaro Performed By: Emma Mclean, NIC, RVT
== END | disposition home or self-care (01) ==
PROVIDERS: PCP Physician Assistant; Referring Provider Physician Assistant Medical; Visit Provider Physician Assistant Medical
DX: I35.0 Nonrheumatic aortic (valve) stenosis (principal)
CPT/HCPCS: 93306